=== PATIENT | male | born 1995 | race Two or more races ===

== ENCOUNTER 2024-04-09 08:24 | Emergency (ER) | payer SELFPAY ==
[~2024-04-09] VITALS: Ht 177.8 cm; Wt 82.4 kg
[2024-04-09 09:40] VITALS: BP 133/79; PULSE 64; RESP 16; TEMP 97.8; O2SAT 100
[2024-04-09] MEDS ORDERED: BACL10TA PO (10:05)
[2024-04-09] MEDS ORDERED: NAPR-746 PO (10:05)
== END 2024-04-09 10:17 | disposition home or self-care (01) ==
LOC: ER 08:24
DX: S16.1XXA Strain of muscle, fascia and tendon at neck level, initial encounter (principal); Z79.899 Other long term (current) drug therapy; V43.62XA Car passenger injured in collision with other type car in traffic accident, initial encounter; Y93.89 Activity, other specified; Y92.89 Other specified places as the place of occurrence of the external cause; Y99.8 Other external cause status
CPT/HCPCS: 72040